=== PATIENT | female | born 1955 | race Caucasian/White ===

== ENCOUNTER 2016-04-25 20:14 | Emergency (ER) | payer BC ==
[2016-04-25] MEDS ORDERED: KETAMINE HCL INJ 500 MG/10 ML VIAL ONE (20:42)
[2016-04-25] MEDS ORDERED: ADENOSINE INJ/PF 6 MG/2 ML SDV IV ONE (20:43)
[2016-04-25] MEDS ORDERED: DILTIAZEM HCL INJ 25 MG/5 ML VIAL ONE (20:44)
[2016-04-25] MEDS ORDERED: DILTIAZEM HCL/D5W 125 MG/125 ML RTUINJ IV ONE (20:45)
[2016-04-25] MEDS ORDERED: DILTIAZEM HCL/D5W 125 ML IV PRN (20:50)
[2016-04-25] MEDS ORDERED: DILTIAZEM HCL INJ 25 MG/5 ML VIAL IV ONE (20:50)
--- NOTE | 2016-04-25 20:53 | ER Document Report ---
ED General - General Stated Complaint: SHORTNESS OF BREATH Cannot obtain history due to: Unstable vital signs Notes: Patient is a 61-year-old female who presents in severe respiratory distress. History is limited secondary to patient's critical nature the time of assessment. History is as provided by the patient's daughter at the bedside. States that the patient has had an upper respiratory infection for the past 1 week. She has had cough, runny nose and apparent sinus congestion. She was seen in urgent care 2 days ago and started on azithromycin. However, since that time she has had progressive worsening of her shortness of breath when family noticed that her work of breathing appeared to be getting worse they contacted EMS. She does not have any history of similar symptoms in the past. Her medical history does include coronary artery disease, hypertension, hyperlipidemia, but she has no prior history of CHF. Past Medical History - General Information source: Patient - Social History Smoking Status: Never Smoker Frequency of alcohol use: None Drug Abuse: None Lives with: Spouse/Significant other Family History: Reviewed & Not Pertinent Review of Systems - Review of Systems Notes: Constitutional: Negative for fever. HENT: Negative for sore throat. Eyes: Negative for visual changes. Cardiovascular: Negative for chest pain. Respiratory: Positive for shortness of breath. Gastrointestinal: Negative for abdominal pain, vomiting or diarrhea. Genitourinary: Negative for dysuria. Musculoskeletal: Negative for back pain. Skin: Negative for rash. Neurological: Negative for headaches, weakness or numbness. 10 point ROS negative except as marked above and in HPI. Physical Exam - Vital signs Vitals: Resp Pulse Ox 46 H 69 L 04/25/16 20:39 04/25/16 20:39 Interpretation: Tachycardic, Hypoxic, Tachypneic Notes: PHYSICAL EXAMINATION: GENERAL: Patient is critically ill in appearance and in obvious respiratory distress. Lethargic HEAD: Atraumatic, normocephalic. EYES: Pupils equal round and reactive to light, extraocular movements intact, sclera anicteric, conjunctiva are normal. ENT: nares patent, oropharynx clear without exudates. Moderately dry mucous membranes. NECK: supple without lymphadenopathy LUNGS: Severe respiratory distress. Initial respiratory rate in the 50s. Rales in all lung garcía. Bedside ultrasound demonstrates B-lines throughout. HEART: Irregularly irregular tachycardia. Initial rates in the 200s. Bedside echocardiogram without pericardial effusion, limited secondary to tachypnea ABDOMEN: Soft, nontender, normoactive bowel sounds. No guarding, no rebound. No masses appreciated. EXTREMITIES: Normal range of motion, no pitting or edema. No cyanosis. NEUROLOGICAL: No focal neurological deficits. Moves all extremities spontaneously and on command. PSYCH: Lethargic SKIN: Warm, Dry, normal turgor, no rashes or lesions noted. Course - Re-evaluation Re-evalutation: 04/25/16 20:51 Patient presents in severe respiratory distress with tachypnea into the mid 50s. Hypoxemic to 60% on room air. Initial rate of 225-230 bpm with A. fib with rapid ventricular response. The medial he came to the bedside and assessed the patient. She has diffuse rales in all lung garcía. A bedside lung ultrasound shows diffuse B-lines consistent with pulmonary edema. Difficult to obtain an echo on bedside exam as patient is so tachypneic I'm not able to get a good view although I do not see an obvious pericardial effusion or tamponade. She does not have any obvious peripheral edema on exam. She denies any chest pain to suggest ACS as the etiology of her presentation her no ST changes on her EKG. I do have a large concern for possible pulmonary embolus as the etiology of patient's initial presentation particular given her significant tachycardia, tachypnea and hypoxemia without an alternative explanation beyond possible new onset heart failure in the setting of rapid A. fib. Patient was started on diltiazem drip after initial bolus bring her rates down into the 150s. She was likewise placed on BiPAP and her oxygen saturations were brought up to 91-90% on 100% FiO2 12 on 6. Patient is critically ill at this time and a very high risk for decompensation. Will continue to reassess frequently to see if patient will require intubation. Will also attempt to get a CTA of the chest when patient is stable enough for this study. 04/25/16 21:05 Patient's oxygen saturations have now improved to 93% consistently. She is able to tolerate laying flat at this point. Her diltiazem drip at 10 mg/h. Her rate is currently at 160 continues with A. fib with rapid ventricular response. When I titrated the drip past 10 patient has become hypotensive and has required backing off on that rate. Very small fluid boluses being administered. Her chest x-ray confirms my concerns of bilateral pulmonary edema. I will go over with the patient in conjunction with 2 nurses with patient on BiPAP and telemetry for her CT of the chest. Will not wait for a creatinine as if patient does have a large clot I need to know this immediately as she would likely require TPA administration given her instability. 04/25/16 21:17 Radiology read agrees with my assessment of the chest x-ray the patient has bilateral pulmonary edema. Patient does not appear clinically volume overloaded and I do not believe Lasix should be used at this time as I believe she is likely having a fluid shift as opposed to afford volume overload. Will continue on BiPAP. We are trying to figure out a safe way to transport patient to CT on BiPAP. Given patient's continued A. fib with rapid ventricular response despite diltiazem, will transition to amiodarone from diltiazem in an attempt for rate control which I believe will improve patient's overall blood pressure. 04/25/16 21:46 Patient's sat is now improving to 95% on 100% FiO2. I went to CT with the patient. I do not see an obvious pulmonary artery clot. She remained hemodynamically stable throughout her time in CT. Awaiting read from radiology. If no large pulmonary embolus is present, primary concern at this time is for a myocarditis as patient is had a viral infection recently and this would explain her new onset failure. Alternatively as mentioned before, if patient's A. fib has gone uncontrolled for some time could induce new onset high output failure although patient was seen in urgent care less than 48 hours ago was noted to have a normal heart rate at that time. 04/25/16 21:57 I have contacted [facility] for transfer at this time. Patient' s troponin is notably elevated at 5.9. ProBNP is likewise elevated at 3000. D- dimer is elevated at 6.8. CRP and ESR have been added on. 04/25/16 22:24 I discussed this case with the starcher and tenter range feeder at [facility] as well as the acquisitions logistics analyst Dr. Caba who has accepted the patient. Their shifting bed moving beds to find rapid placement for this patient. Patient remains critical at this time although her status is overall improved since time of presentation. 04/25/16 23:32 Transport from [facility] has arrived to transfer the patient to intensive care. Patient is hemodynamically stable at this time, heart rate has trended down to 130 at this time on the amiodarone drip. Blood pressures in the 110s. She is saturating 92-93% on BiPAP. Her CRP has returned markedly elevated at 287. Critical but acceptable for transport at this time. At this time, I feel overall most likely diagnosis is a viral myocarditis with associated new onset afib with RVR and CHF. - Vital Signs Vital signs: Temp Pulse Resp BP Pulse Ox 39 H 120/77 91 L 04/25/16 22:48 04/25/16 22:48 04/25/16 22:48 - Laboratory Result Diagrams: 04/25/16 20:40 04/25/16 20:40 Laboratory results interpreted by me: 04/25/16 04/25/16 04/25/16 20:40 20:40 20:40 WBC 13.6 H RBC 5.52 H Hgb 16.1 H Hct 47.4 H RDW 14.6 H Seg Neutrophils % 86.6 H Lymphocytes % 8.7 L Absolute Neutrophils 11.8 H D-Dimer 6.80 H Carbonic Acid ABG pH ABG pCO2 ABG pO2 ABG Total CO2 Potassium 3.1 L Chloride 95 L Anion Gap 20 H BUN 42 H Creatinine 1.81 H Est GFR ( Amer) 35 L Est GFR (Non-Af Amer) 29 L Glucose 163 H C-Reactive Protein NT-Pro-B Natriuret Pep 04/25/16 04/25/16 04/25/16 20:40 20:40 22:50 WBC RBC Hgb Hct RDW Seg Neutrophils % Lymphocytes % Absolute Neutrophils D-Dimer Carbonic Acid 0.94 L ABG pH 7.52 H ABG pCO2 31.2 L ABG pO2 66.8 L ABG Total CO2 25.6 H Potassium Chloride Anion Gap BUN Creatinine Est GFR ( Amer) Est GFR (Non-Af Amer) Glucose C-Reactive Protein 282.7 H NT-Pro-B Natriuret Pep 3040 H - Diagnostic Test Radiology reviewed: Image reviewed, Reports reviewed Radiology results interpreted by me: 04/25/16 21:58 Chest x-ray: Diffuse bilateral pulmonary edema - EKG Interpretation by Me Additional EKG results interpreted by me: 04/25/16 21:08 A. fib with rapid ventricular response. Intermittent PVCs. Rate is 163. No ST elevations or depressions. Critical Care Note - Critical Care Note Total time excluding time spent on procedures (mins): 185 Comments: Critical care time spent obtaining history from patient or surrogate, discussions with consultants, development of treatment plan with patient or surrogate, evaluation of patient's response to treatment, examination of patient , ordering and performing treatments and interventions, ordering and review of laboratory studies, re-evaluation of patient's condition, ordering and review of radiographic studies and review of old charts Discharge - Discharge Clinical Impression: Respiratory distress, Hypoxemia, Atrial fibrillation with rapid ventricular response Pulmonary edema Qualifiers: Chronicity: acute Qualified Code(s): J81.0 - Acute pulmonary edema Congestive heart failure (CHF) Qualifiers: Congestive heart failure type: systolic Congestive heart failure chronicity: acute Qualified Code(s): I50.21 - Acute systolic (congestive) heart failure Condition: Critical Disposition: [facility]
[2016-04-25 21:15] LABS: ABSOLUTE LYMPHOCYTES (AUTO) 1.2 10^3/uL (0.5-4.7); ABSOLUTE MONOCYTES (AUTO) 0.6 10^3/uL (0.1-1.4); ABSOLUTE NEUT (AUTO) 11.8 10^3/uL (1.7-8.2); BASOPHILS % (AUTO) 0.2 % (0-2); HEMATOCRIT 47.4 % (36.0-47.0); HEMOGLOBIN 16.1 g/dL (12.0-15.5); HGB HCT DIFFERENCE 0.9; LYMPHOCYTES % (AUTO) 8.7 % (13-45); MEAN CORPUSCULAR HEMOGLOBIN 29.2 pg (27.0-33.4); MEAN CORPUSCULAR VOLUME 86 fl (80-97); MONOCYTES % (AUTO) 4.5 % (3-13); RED BLOOD COUNT 5.52 10^6/uL (3.72-5.28); RED CELL DISTRIBUTION WIDTH 14.6 % (11.5-14.0); SEGMENTED NEUTROPHILS % (AUTO) 86.6 % (42-78); WHITE BLOOD COUNT 13.6 10^3/uL (4.0-10.5)
[2016-04-25 21:17] LABS: PROTHROMBIN TIME 12.7 SEC (11.4-15.4)
[2016-04-25 21:18] LABS: PARTIAL THROMBOPLASTIN TIME 30.3 SEC (23.5-35.8)
[2016-04-25] MEDS ORDERED: DEXTROSE 5%-WATER 500 ML with AMIODARONE HCL 900 MG IV PRN ×2 (21:18)
[2016-04-25] MEDS ORDERED: AMIODARONE HCL 150 MG in DEXTROSE 5%-WATER 100 ML IV ONE (21:18)
[2016-04-25] MEDS ORDERED: AMIODARONE HCL INJ 150 MG/3 ML VIAL IV ONE (21:27)
[2016-04-25 21:33] LABS: BLOOD UREA NITROGEN 42 mg/dL (7-20); CALCIUM 8.9 mg/dL (8.4-10.2); CREATININE RESULT 1.81 mg/dL (0.52-1.25); GLUCOSE 163 mg/dL (75-110)
[2016-04-25 21:49] LABS: ANION GAP 20 (5-19); POTASSIUM 3.1 mmol/L (3.6-5.0)
[2016-04-25 21:50] LABS: CARBON DIOXIDE 24 mmol/L (22-30); CHLORIDE 95 mmol/L (98-107); SODIUM 139.3 mmol/L (137-145)
[2016-04-25 21:52] LABS: TROPONIN I 5.49 ng/mL
[2016-04-25 21:57] LABS: ADD ON TESTING BLD IN LAB ACKNOWLEDGE
[2016-04-25 22:55] VITALS: BP 120/77
[2016-04-25 23:01] LABS: ARTERIAL BLOOD BASE EXCESS 2.6 mmol/L; ARTERIAL BLOOD O2 SATURATION 95.1 % (94-98)
[2016-04-25 23:11] LABS: C-REACTIVE PROTEIN 282.7 mg/L (<10.0)
--- NOTE | 2016-04-26 08:10 | EKG REPORT ---
SEVERITY:- ABNORMAL ECG - ATRIAL FIBRILLATION, V-RATE 96-221 VENTRICULAR PREMATURE COMPLEX PROBABLE LVH WITH SECONDARY REPOL ABNRM : Confirmed by: Ceferino Maldonado MD 26-Apr-2016 08:09:12
== END 2016-04-25 23:05 | disposition short-term general hospital (02) ==
LOC: ER 20:14
DX: J81.0 Acute pulmonary edema (principal); R06.00 Dyspnea, unspecified; R09.02 Hypoxemia; I48.91 Unspecified atrial fibrillation; R06.02 Shortness of breath; R05 Cough; R09.89 Other specified symptoms and signs involving the circulatory and respiratory systems; R09.81 Nasal congestion
CPT/HCPCS: 99291; 99292; 96365; 96366; 96368; 36415; 82803; 85025; 85652; 85610; 85730; 86140; 80048; 84484; 85379; 83880; 71010; 71275; 93010; 94660; J3490 ×2; J7060; J0282